=== PATIENT | male | born 1935 | race Caucasian/White ===

== ENCOUNTER 2020-03-18 10:28 | Day surgery (SDC) | payer MEDICARE, BC, SELFPAY ==
[2020-03-18] VITALS (8 sets, daily range): BP systolic 106–143; BP diastolic 48–89; PULSE 60–70; RESP 16–20; TEMP 36.6; O2SAT 96–99; BMI 29.9
--- NOTE | 2020-03-18 | IR_ITS ---
APPROVED REPORT Patient Location: Outpatient [facility] Adviser: AMRIK Mari RT (R) PROCEDURES 1. Open existing pocket for generator exision Permanent Pacemaker. 2. Placement of a ventricular sensing and pacing coil in the right ventricular apex. 3. Capping of chronic right ventriculiar lead. 4. Reimplantation Pacemaker generator. INDICATION Sick Sinus Syndrome, Symptomatic Bradycardia, Improperly functioning right ventricular lead. Informed consent was obtained prior to the procedure. COMPLICATIONS None Estimated Blood Loss: Less than 10 ML TECHNIQUE 1% Lidocaine with epinephrine used to anesthetized the left anterior aspect of the chest. Scalpel was used to make the cutaneous incision. Pocket for the pacemaker was opened and the chronic generator extracted. The the subclavian vein was accessed via the Selinger technique, there was one wire in the vein. A 6 [place] sheath was placed under fluoroscopic guidance into the subclavian vein over the wire. The dilator was removed from the sheath. Using fluoroscopic guidance, the ventricular lead was placed into the right ventricular apex, screwed and secured into place. Electronic interrogation proved acceptable thresholds and voltage within the lead. Using 3-0 silk, the ventricular lead was then secured into place. Lead was secured to the facia using the 3-0 silk. Following this, the sheath was pealed away. The existing right ventricular lead was then capped. 1 gram of Ancef was used to flush the pocket. Following the pacemaker generator being secured to the fascia and in place, Monocryl was used to close the subcutaneous layers while ricky were used to close the cutaneous layer. A pressure dressing was placed and the patient was transferred to the postop holding area in stable condition for postoperative care. INTERROGATION Generator Model: [employer] 2272 Generator Serial No: [id number] RA Lead Model: [employer] CapsureFix Novus Bipolar IS-1 Positive Fix RA/RV 20-110 cm 5076 RA Lead Serial No: [id number] RV Lead Model: [place] [employer] Ingevity MRI IS-1 Bi Positive Fix RA/RV 59 cm 7742 RV Lead Serial No: [id number] Device Measurements: RA Lead: Chronic Lead RV Lead: Intrinsic: 9.0 mV Threshold: 1.2v@0.4ms Impedence: 1200 OHMS Parameters: Mode: DDDR Base/Max: 60/120ppm IMPRESSION 1. Successful Open existing pocket for generator excision Permanent Pacemaker. 2. Successful Placement of a ventricular sensing and pacing coil in the right ventricular apex. 3. Successful Capping of chronic right ventriculiar lead. 4. Successful Reimplantation Pacemaker generator. PLAN 1. Post Op wound care.l Electronically signed by : Rajan Fonseca, 03/19/2020 13:37:47
[2020-03-18 11:27] LABS: Basophils # 0.1 K/mm3 (0-0.2); Chloride 100 mmol/L (98-107); Eosinophils # 0.3 K/mm3 (0.0-0.4); Eosinophils % 5.6 % (0.1-12.0); Hematocrit 47.9 % (42.0-52.0); Hemoglobin 16.1 g/dL (14.1-18.0); Lymphocytes # 1.6 K/mm3 (0.7-4.5); Lymphocytes % 26.4 % (10-50); Mean Corpuscular HGB Conc 33.7 g/dL (31.8-35.4); Mean Corpuscular Hemoglobin 30.6 pg (27.0-31.2); Mean Corpuscular Volume 90.8 fl (80-94); Mean Platelet Volume 7.7 fl (7.4-10.4); Monocytes # 0.5 K/mm3 (0.1-1.0); Monocytes % 7.6 % (1.7-9.3); Neutrophils # 3.5 K/mm3 (1.8-7.8); Neutrophils % 59.4 % (37.0-80.0); Platelet Count 215 K/mm3 (142-424); Red Blood Count 5.27 M/mm3 (4.60-6.20); Red Cell Distribution Width 13.9 % (11.5-17.5); Sodium 138 mmol/L (136-145); White Blood Count 5.9 K/mm3 (4.8-10.8)
[2020-03-18 11:28] LABS: Potassium 3.8 mmoL/L (3.5-5.1)
[2020-03-18 11:31] LABS: Anion Gap 11.8 mEq/L (5-15); Blood Urea Nitrogen 18 mg/dl (9-20); Calcium 9.2 mg/dl (8.4-10.2); Carbon Dioxide 30 mmol/L (22.0-30.0); Creatinine Clearance Estimated 63 mL/min (50-200); Estimated Glomerular Filt Rate 58 ml/min (>60); GFR (African American) 70 ML/MIN (>60); Glucose 100 mg/dl (74-100)
--- NOTE | 2020-03-18 15:11 | XR_ITS ---
PROCEDURE: XR CHEST PORTABLE CLINICAL INDICATION: Confirm pacemaker/AID placement A COMPARISON: CL PACEMAKER DEFIBRILATOR from 03/18/2020 FINDINGS: Pacemaker is present from left subclavian approach with right atrial lead and 2 ventricular leads. Both ventricular leads lie over the left heart. Cannot confirm definite position of the leads without a lateral view. Please correlate with fluoroscopic findings. There is no evidence of pneumothorax. The lungs are clear. IMPRESSION: Status post pacemaker insertion as described above without evidence of pneumothorax Dictated by: Yuan Ordoñez MD 03/18/2020 15:52 Electronically signed by Yuan Ordoñez MD in [place] 03/18/2020 15:52
== END 2020-03-18 17:08 | disposition home or self-care (01) ==
LOC: CATHLAB 10:31 → 2ND 16:02
PROVIDERS: PCP Family Medicine; Visit Provider Internal Medicine
DX: Z45.018 Encounter for adjustment and management of other part of cardiac pacemaker (principal); I49.5 Sick sinus syndrome; T82.110A Breakdown (mechanical) of cardiac electrode, initial encounter
CPT/HCPCS: 33216; 71045; 80048; 85025; C1898